=== PATIENT | male | born 1955 | race Caucasian/White ===

== ENCOUNTER 2018-03-21 14:39 | Inpatient (IN) | payer MEDICAID ==
[~2018-03-21] VITALS: Ht 170.2 cm; Wt 78.7 kg
[2018-03-21] MEDS: NOREPINEPHRINE 8 MG/250ML KIT 250 ML IV SCH (01:00)
[2018-03-21] MEDS ORDERED: SODIUM CHLORIDE 0.9% 1,000 ML IVB ONE (15:14)
[2018-03-21 15:30] LABS: Basophils # (auto) 0.1 uL; Basophils % (auto) 0.4 % (0.0-2.0); Eosinophils # (auto) 0 uL; Eosinophils % (auto) 0.2 % (0.0-7.0); Mean Corpuscular Hgb Conc. 33.8 g/dL (32.0-36.0); Monocytes % (auto) 6.2 % (0.0-12.0); Neutrophils # (auto) 13.7 uL; Nucleated Red Blood Cells % 0.1 %
[2018-03-21 15:32] LABS: Hematocrit 52.3 % (41.0-53.0); Hemoglobin 17.7 g/dL (13.5-17.5); Lymphocytes # (auto) 1.3 uL; Lymphocytes % (auto) 7.9 % (10.0-50.0); Mean Corpuscular Volume 88.6 fL (80.0-100.0); Neutrophils % (auto) 85.3 % (37.0-80.0); Platelet Count (auto) 187 10^3/uL (140-450); Red Blood Cells 5.91 10^6/uL (4.5-5.90); Red Cell Distribution Width 14.3 % (11.8-14.3); White Blood Cell 16.1 10^3/uL (4.4-10.8)
[2018-03-21 15:57] LABS: INR 0.99 (0.9-1.15); Partial Thromboplastin Time 26.6 sec (23.78-33.04); Prothrombin Time 10.6 sec (9.27-12.13)
[2018-03-21 16:09] LABS: Alanine Aminotransferase 20 U/L (16-61); Albumin 4.1 g/dL (3.4-5.0); Anion Gap 6 (5-15); Aspartate Aminotransferase 15 U/L (15-37); BUN/Creatinine Ratio 23.1; Blood Urea Nitrogen 31 mg/dL (7-18); Carbon Dioxide 27 mmol/L (21-32); Chloride 106 mmol/L (98-107); GFR African American 69 mL/min; GFR Non-African American 57 mL/min; Glucose 155 mg/dL (74-106); Lipase 83 U/L (73-393); Magnesium 2.3 mg/dL (1.6-2.6); Potassium 4.1 mmol/L (3.5-5.1); Sodium 139 mmol/L (136-145)
[2018-03-21 16:14] LABS: Alkaline Phosphatase 98 U/L (45-117); Bilirubin, Total 0.5 mg/dL (0.2-1.0); Total Protein 8.2 g/dL (6.4-8.2)
[2018-03-21] MEDS ORDERED: cefTRIAXone 1GM/50ML D5W 50 ML IV ONE (16:45)
[2018-03-21] MEDS ORDERED: ALBUTEROL SULF 2.5 MG/0.5ML(0.5%) NEB SOLN NEB ONE (18:30)
[2018-03-21] MEDS ORDERED: IPRATROPIUM BROM 0.5 MG/2.5ML INH SOL NEB ONE (18:30)
[2018-03-21 20:56] VITALS: BP 121/74
[2018-03-21] MEDS ORDERED: HYDROcodone-ACET 5/325MG TAB PO PRN (21:00)
[2018-03-21] MEDS ORDERED: ONDANSETRON HCL 4 MG/2 ML VIAL IV PRN (21:00)
[2018-03-21] MEDS ORDERED: DOXYCYCLINE 100MG/250ML 250 ML IV SCH (21:00)
[2018-03-21] MEDS ORDERED: ACETAMINOPHEN 325 MG TAB PO PRN (21:00)
[2018-03-21] MEDS ORDERED: MORPHINE SULF INJ 2 MG/ML SYRINGE 1ML IV PRN (21:15)
[2018-03-21] MEDS ORDERED: LORazepam 2MG/ML-1ML VIAL IV PRN (21:15)
[2018-03-21] MEDS ORDERED: FAMOTIDINE 20 MG TAB PO SCH (22:00)
[2018-03-21] MEDS ORDERED: DEXTROSE (50%) 50ML SYRG IV PRN (22:15)
[2018-03-21] MEDS ORDERED: ADENOSINE 6 MG/2 ML INJ IV ONE (23:20)
[2018-03-21] MEDS: MIDAZOLAM DRIP 50 mg/50mL 50 ML IV SCH (23:33)
[2018-03-21] MEDS ORDERED: VANCOMYCIN PER PHARMACY 0 MG IV SCH (23:45)
[2018-03-21] MEDS ORDERED: MIDAZOLAM DRIP 50 mg/50mL 50 ML IV ONE (23:48)
[2018-03-21] MEDS ORDERED: AMIODARONE HCL 900 MG in DEXTROSE 500 ML IV SCH (23:55)
[2018-03-22] VITALS (102 sets, daily range): BP systolic 79–170; BP diastolic 32–114
[2018-03-22] MEDS ORDERED: AMIODARONE HCL 900 MG IV ONE (00:01)
[2018-03-22] MEDS ORDERED: NOREPINEPHRINE 8 MG/250ML KIT 250 ML IV ONE (00:05)
[2018-03-22] MEDS: AMIODARONE HCL 900 MG in DEXTROSE 500 ML IV SCH ×2 (00:17→20:51)
[2018-03-22] MEDS ORDERED: VANCOMYCIN 1GM/250ML 250 ML IV ONE (00:30)
[2018-03-22] MEDS ORDERED: VANCOMYCIN 1GM/250ML 250 ML IV SCH ×2 (01:00→21:00)
[2018-03-22] MEDS: PROPOFOL 100 ML IV SCH ×2 (01:13→23:33)
[2018-03-22] MEDS: ACCU-CHEK COMFORT CURVE STRIP VI SCH ×5 (01:13→23:59)
[2018-03-22] MEDS: InsuLIN REG 1unit/0.01ml Soln (100units/ml) SC SCH ×4 (01:17→17:47)
[2018-03-22] MEDS ORDERED: METO-158 PO (02:06)
[2018-03-22] MEDS ORDERED: OMEP20TA PO (02:06)
[2018-03-22] MEDS ORDERED: CLON0.1T PO (02:06)
[2018-03-22] MEDS ORDERED: LISI10TA6 PO (02:06)
[2018-03-22] MEDS: ALBUTEROL SULF 2.5 MG/0.5ML(0.5%) NEB SOLN NEB SCH ×6 (02:22→22:31)
[2018-03-22] MEDS: IPRATROPIUM BROM 0.5 MG/2.5ML INH SOL NEB SCH ×6 (02:22→22:31)
[2018-03-22 04:13] LABS: Urine Bacteria NONE SEEN /hpf (None Seen); Urine Blood 1+ /uL (Negative); Urine Hyaline Cast FEW /lpf (0 - 2); Urine Mucus FEW (None Seen); Urine Specific Gravity 1.019 (1.001-1.035); Urine WBC 10 /hpf (0 - 3)
[2018-03-22 04:18] LABS: Basophils # (auto) 0 uL; Basophils % (auto) 0.1 % (0.0-2.0); Eosinophils # (auto) 0 uL; Hematocrit 47.1 % (41.0-53.0); Hemoglobin 15.6 g/dL (13.5-17.5); Lymphocytes # (auto) 0.8 uL; Lymphocytes % (auto) 4.4 % (10.0-50.0); Mean Corpuscular Hemoglobin 29.4 pg (28.0-32.0); Mean Corpuscular Hgb Conc. 33.1 g/dL (32.0-36.0); Mean Corpuscular Volume 88.6 fL (80.0-100.0); Monocytes # (auto) 1.3 uL; Monocytes % (auto) 7.3 % (0.0-12.0); Neutrophils # (auto) 15.4 uL; Neutrophils % (auto) 88.2 % (37.0-80.0); Nucleated Red Blood Cells % 0.1 %; Platelet Count (auto) 216 10^3/uL (140-450); Red Blood Cells 5.31 10^6/uL (4.5-5.90); Red Cell Distribution Width 14.3 % (11.8-14.3); White Blood Cell 17.4 10^3/uL (4.4-10.8)
[2018-03-22 04:23] LABS: Alcohol, Urine < 3.0 mg/dL (0-5); Amphetamine Screen, Urine NEGATIVE (NEGATIVE); Barbiturate Scree,Urine NEGATIVE (NEGATIVE); Benzodiazephine Screen, Urine POSITIVE (NEGATIVE); Cannabinoid Screen, Urine NEGATIVE (NEGATIVE); Cocaine Screen, Urine NEGATIVE (NEGATIVE); Opiate Scree,Urine NEGATIVE (NEGATIVE); Phencyclidine Screen, Urine NEGATIVE (NEGATIVE)
[2018-03-22 04:24] LABS: Calcium 7.8 mg/dL (8.5-10.1)
[2018-03-22 04:28] LABS: Potassium 5.7 mmol/L (3.5-5.1)
[2018-03-22] MEDS ORDERED: SODIUM BICARBONATE 8.4 % INJ 50ML VIAL IV ONE (05:15)
[2018-03-22] MEDS ORDERED: CALCIUM GLUC 4.65meq/50ml D5AE 50 ML IV ONE (05:15)
[2018-03-22] MEDS ORDERED: InsuLIN REG 1unit/0.01ml Soln (100units/ml) IV ONE (05:15)
[2018-03-22] MEDS ORDERED: DEXTROSE (50%) 50ML SYRG IV ONE (05:15)
[2018-03-22] MEDS ORDERED: hydrALAZINE HCL 20 MG/ML VL ONE (05:42)
[2018-03-22] MEDS: PIPERACILLIN-TAZOB 3.375GM 100 ML IV SCH ×3 (07:00→17:47)
[2018-03-22] MEDS: MIDAZOLAM DRIP 50 mg/50mL 50 ML IV SCH ×2 (07:49→20:43)
[2018-03-22] MEDS: PANTOPRAZOLE 40 MG/10 ML VIAL IV SCH (09:54)
[2018-03-22] MEDS ORDERED: ENOXAPARIN SOD 40 MG/0.4 ML SYRINGE SC SCH (10:00)
[2018-03-22] MEDS ORDERED: METOPROLOL TARTRATE 25 MG TAB PO ONE (12:30)
[2018-03-22] MEDS ORDERED: ENOXAPARIN SOD 100 MG/1 ML SYRINGE SC SCH (22:00)
[2018-03-22] MEDS: METOPROLOL TARTRATE 25 MG TAB PO SCH (22:00)
[2018-03-22] MEDS: ENOXAPARIN SOD 80 MG/0.8ML SYRINGE SC SCH (22:19)
[2018-03-23] VITALS (77 sets, daily range): BP systolic 90–174; BP diastolic 25–88
[2018-03-23] MEDS: PIPERACILLIN-TAZOB 3.375GM 100 ML IV SCH ×2 (00:05→06:26)
[2018-03-23] MEDS: InsuLIN REG 1unit/0.01ml Soln (100units/ml) SC SCH ×5 (00:05→23:41)
[2018-03-23] MEDS: NOREPINEPHRINE 8 MG/250ML KIT 250 ML IV SCH ×2 (01:00→04:04)
[2018-03-23] MEDS: ALBUTEROL SULF 2.5 MG/0.5ML(0.5%) NEB SOLN NEB SCH ×6 (02:30→22:21)
[2018-03-23] MEDS: IPRATROPIUM BROM 0.5 MG/2.5ML INH SOL NEB SCH ×6 (02:30→22:21)
[2018-03-23] MEDS: MIDAZOLAM DRIP 50 mg/50mL 50 ML IV SCH ×2 (04:03→21:19)
[2018-03-23 04:13] LABS: Basophils # (auto) 0 uL; Basophils % (auto) 0.2 % (0.0-2.0); Eosinophils # (auto) 0 uL; Eosinophils % (auto) 0.1 % (0.0-7.0); Hematocrit 41.1 % (41.0-53.0); Hemoglobin 14.1 g/dL (13.5-17.5); Lymphocytes # (auto) 0.8 uL; Lymphocytes % (auto) 6.8 % (10.0-50.0); Mean Corpuscular Hemoglobin 30.1 pg (28.0-32.0); Mean Corpuscular Hgb Conc. 34.3 g/dL (32.0-36.0); Mean Corpuscular Volume 87.7 fL (80.0-100.0); Monocytes # (auto) 1.2 uL; Monocytes % (auto) 10.7 % (0.0-12.0); Neutrophils # (auto) 9.4 uL; Neutrophils % (auto) 82.2 % (37.0-80.0); Platelet Count (auto) 131 10^3/uL (140-450); Red Blood Cells 4.68 10^6/uL (4.5-5.90); Red Cell Distribution Width 13.8 % (11.8-14.3); White Blood Cell 11.4 10^3/uL (4.4-10.8)
[2018-03-23 04:24] LABS: Potassium 3.9 mmol/L (3.5-5.1)
[2018-03-23 04:35] LABS: Albumin 2.9 g/dL (3.4-5.0); BUN/Creatinine Ratio 17.6; Calcium 8.4 mg/dL (8.5-10.1); Total Protein 6.2 g/dL (6.4-8.2)
[2018-03-23] MEDS: ACCU-CHEK COMFORT CURVE STRIP VI SCH ×4 (06:19→23:41)
[2018-03-23] MEDS: PANTOPRAZOLE 40 MG/10 ML VIAL IV SCH (10:26)
[2018-03-23] MEDS: ENOXAPARIN SOD 80 MG/0.8ML SYRINGE SC SCH ×2 (10:26→21:26)
[2018-03-23] MEDS: AZITHROMYCIN 500MG/ 250ML 250 ML IV SCH (10:26)
[2018-03-23] MEDS: METOPROLOL TARTRATE 25 MG TAB PO SCH ×2 (10:27→21:25)
[2018-03-23] MEDS: ACETYLCYSTEINE ORAL for CIN 20%(200MG/ML) 4ML PO SCH ×2 (10:34→21:26)
[2018-03-23] MEDS ORDERED: SODIUM CHLORIDE 0.9% 1,000 ML IV SCH ×3 (11:45→18:15)
[2018-03-23] MEDS ORDERED: fentaNYL Drip 2500mCg/250mlNS 250 ML IV SCH (14:41)
[2018-03-23] MEDS ORDERED: SODIUM CHL 0.9% 0 ML ONE (15:27)
[2018-03-23] MEDS ORDERED: ANGIOMAX 250 MG VIAL IV ONE (15:27)
[2018-03-23] MEDS ORDERED: IODIXANOL 320MG/ML 100ML BTL IV ONE (15:27)
[2018-03-23] MEDS ORDERED: LIDOCAINE 2%HCL (LOCAL ANESTH.) INJ 20ML MDV ONE (15:28)
[2018-03-23] MEDS ORDERED: EPINEPHrine HCL 1 MG/10 ML SYRG ONE (15:41)
[2018-03-23] MEDS ORDERED: ATROPINE SULF 1 MG/10ml SYR ONE (15:41)
[2018-03-23] MEDS ORDERED: fentaNYL CITRATE 100 MCG/2 ML VL ONE (15:55)
[2018-03-23] MEDS ORDERED: MIDAZOLAM HCL 1MG/1ML-2 ML VIAL ONE (15:56)
[2018-03-23] MEDS ORDERED: SODIUM BICARBONATE 50ML VIAL 50 ML in D5W/SOD CHL 0.45% 1,000 ML IV SCH (17:15)
[2018-03-23] MEDS: SODIUM BICARBONATE 50ML VIAL 50 ML in D5W/SOD CHL 0.45% 1,000 ML IV SCH (20:00)
[2018-03-23] MEDS: PROPOFOL 100 ML IV SCH (23:33)
[2018-03-24] VITALS (78 sets, daily range): BP systolic 65–177; BP diastolic 21–100
[2018-03-24] MEDS: ALBUTEROL SULF 2.5 MG/0.5ML(0.5%) NEB SOLN NEB SCH ×6 (02:20→22:00)
[2018-03-24] MEDS: IPRATROPIUM BROM 0.5 MG/2.5ML INH SOL NEB SCH ×6 (02:20→22:00)
[2018-03-24 03:50] LABS: Basophils # (auto) 0 uL; Basophils % (auto) 0.2 % (0.0-2.0); Eosinophils # (auto) 0.1 uL; Eosinophils % (auto) 0.6 % (0.0-7.0); Hematocrit 39.8 % (41.0-53.0); Hemoglobin 13.6 g/dL (13.5-17.5); Lymphocytes # (auto) 1.2 uL; Lymphocytes % (auto) 11.7 % (10.0-50.0); Mean Corpuscular Hemoglobin 30.2 pg (28.0-32.0); Mean Corpuscular Hgb Conc. 34.2 g/dL (32.0-36.0); Mean Corpuscular Volume 88.2 fL (80.0-100.0); Monocytes # (auto) 1.2 uL; Monocytes % (auto) 12.1 % (0.0-12.0); Neutrophils # (auto) 7.7 uL; Neutrophils % (auto) 75.4 % (37.0-80.0); Platelet Count (auto) 121 10^3/uL (140-450); Red Blood Cells 4.51 10^6/uL (4.5-5.90); Red Cell Distribution Width 14.1 % (11.8-14.3); White Blood Cell 10.2 10^3/uL (4.4-10.8)
[2018-03-24 04:28] LABS: Albumin 2.6 g/dL (3.4-5.0); Calcium 8.4 mg/dL (8.5-10.1); Potassium 3.4 mmol/L (3.5-5.1)
[2018-03-24 04:31] LABS: Bilirubin, Total 0.7 mg/dL (0.2-1.0); Total Protein 6.2 g/dL (6.4-8.2)
[2018-03-24] MEDS: ACCU-CHEK COMFORT CURVE STRIP VI SCH ×4 (05:59→23:56)
[2018-03-24] MEDS: AMIODARONE HCL 900 MG in DEXTROSE 500 ML IV SCH (05:59)
[2018-03-24] MEDS: SODIUM BICARBONATE 50ML VIAL 50 ML in D5W/SOD CHL 0.45% 1,000 ML IV SCH (05:59)
[2018-03-24] MEDS: InsuLIN REG 1unit/0.01ml Soln (100units/ml) SC SCH ×3 (06:00→18:00)
[2018-03-24] MEDS: cefTRIAXone 1GM/50ML D5W 50 ML IV SCH (09:11)
[2018-03-24] MEDS ORDERED: FUROSEMIDE 20 MG/2 ML VIAL IV ONE ×2 (10:30→12:15)
[2018-03-24] MEDS: PANTOPRAZOLE 40 MG/10 ML VIAL IV SCH (10:31)
[2018-03-24] MEDS: ENOXAPARIN SOD 80 MG/0.8ML SYRINGE SC SCH (10:32)
[2018-03-24] MEDS: METOPROLOL TARTRATE 25 MG TAB PO SCH ×2 (10:32→23:32)
[2018-03-24] MEDS: ACETYLCYSTEINE ORAL for CIN 20%(200MG/ML) 4ML PO SCH ×2 (10:32→23:33)
[2018-03-24] MEDS: AZITHROMYCIN 500MG/ 250ML 250 ML IV SCH (10:32)
[2018-03-24] MEDS ORDERED: POTASSIUM EFFERVESENT TAB 25 MEQ GT ONE (12:15)
[2018-03-24] MEDS ORDERED: ALPRAZolam 0.5 MG TAB PO PRN (12:15)
[2018-03-24] MEDS ORDERED: BUDESONIDE (INHALATION) 0.5 MG/2 ML NEB NEB ONE (13:30)
[2018-03-24] MEDS: ACETYLCYSTEINE 10 %(100MG/ML) SOL 4ML NEB SCH ×3 (13:56→22:00)
[2018-03-24] MEDS: MORPHINE SULFATE 4 MG/ML SYR/VIAL IV PRN ×2 (15:59→20:48)
[2018-03-24] MEDS: BUDESONIDE (INHALATION) 0.5 MG/2 ML NEB NEB SCH (18:34)
[2018-03-24] MEDS ORDERED: NALOXONE HCL 0.4 MG/ML VIAL ONE (21:25)
[2018-03-24] MEDS ORDERED: SUCCINYLCHOLINE CHLORIDE 20 MG/ML 10ML VIAL IV ONE ×2 (21:28→23:15)
[2018-03-24] MEDS ORDERED: ETOMIDATE (2MG/ML) 20ML VIAL IV ONE ×2 (21:28→23:15)
[2018-03-24] MEDS ORDERED: PROPOFOL 100 ML IV ONE (21:59)
[2018-03-24] MEDS: PROPOFOL 100 ML IV SCH (22:04)
[2018-03-24] MEDS ORDERED: NALOXONE HCL 0.4 MG/ML VIAL IV ONE (23:15)
[2018-03-24] MEDS ORDERED: PROPOFOL 10 MG/ML 20 ML IV ONE (23:30)
[2018-03-25] VITALS (93 sets, daily range): BP systolic 79–152; BP diastolic 43–74
[2018-03-25] MEDS: InsuLIN REG 1unit/0.01ml Soln (100units/ml) SC SCH ×4 (00:01→17:41)
[2018-03-25] MEDS: ACETYLCYSTEINE 10 %(100MG/ML) SOL 4ML NEB SCH ×6 (02:21→22:19)
[2018-03-25] MEDS: ALBUTEROL SULF 2.5 MG/0.5ML(0.5%) NEB SOLN NEB SCH ×6 (02:21→22:18)
[2018-03-25] MEDS: IPRATROPIUM BROM 0.5 MG/2.5ML INH SOL NEB SCH ×6 (02:21→22:18)
[2018-03-25] MEDS: NOREPINEPHRINE 8 MG/250ML KIT 250 ML IV SCH (02:26)
[2018-03-25] MEDS: PROPOFOL 100 ML IV SCH ×3 (02:28→15:58)
[2018-03-25 04:11] LABS: Basophils # (auto) 0 uL; Basophils % (auto) 0.3 % (0.0-2.0); Eosinophils # (auto) 0 uL; Eosinophils % (auto) 0.2 % (0.0-7.0); Hematocrit 39.4 % (41.0-53.0); Hemoglobin 13.3 g/dL (13.5-17.5); Lymphocytes # (auto) 0.8 uL; Lymphocytes % (auto) 6.9 % (10.0-50.0); Mean Corpuscular Hemoglobin 29.7 pg (28.0-32.0); Mean Corpuscular Hgb Conc. 33.8 g/dL (32.0-36.0); Mean Corpuscular Volume 87.8 fL (80.0-100.0); Monocytes # (auto) 1.5 uL; Monocytes % (auto) 12.3 % (0.0-12.0); Neutrophils # (auto) 9.8 uL; Neutrophils % (auto) 80.3 % (37.0-80.0); Platelet Count (auto) 159 10^3/uL (140-450); Red Blood Cells 4.49 10^6/uL (4.5-5.90); White Blood Cell 12.2 10^3/uL (4.4-10.8)
[2018-03-25 04:30] LABS: BUN/Creatinine Ratio 16.6; Calcium 8.2 mg/dL (8.5-10.1); Potassium 4.1 mmol/L (3.5-5.1)
[2018-03-25] MEDS: BUDESONIDE (INHALATION) 0.5 MG/2 ML NEB NEB SCH ×2 (07:00→22:18)
[2018-03-25] MEDS ORDERED: HYDROcodone-ACET 5/325MG TAB PO PRN (08:30)
[2018-03-25] MEDS: SODIUM CHLORIDE 0.9% 1,000 ML IV SCH ×2 (09:15→21:50)
[2018-03-25] MEDS: ACCU-CHEK COMFORT CURVE STRIP VI SCH ×3 (09:30→17:40)
[2018-03-25] MEDS: AZITHROMYCIN 500MG/ 250ML 250 ML IV SCH (09:40)
[2018-03-25] MEDS: PANTOPRAZOLE 40 MG/10 ML VIAL IV SCH (09:40)
[2018-03-25] MEDS: cefTRIAXone 1GM/50ML D5W 50 ML IV SCH (09:40)
[2018-03-25] MEDS: ENOXAPARIN SOD 40 MG/0.4 ML SYRINGE SC SCH (09:40)
[2018-03-25] MEDS: METOPROLOL TARTRATE 25 MG TAB PO SCH ×2 (09:42→22:11)
[2018-03-25] MEDS: AMIODARONE HCL 900 MG in DEXTROSE 500 ML IV SCH (13:15)
[2018-03-26] VITALS (105 sets, daily range): BP systolic 91–170; BP diastolic 44–82
[2018-03-26] MEDS: NOREPINEPHRINE 8 MG/250ML KIT 250 ML IV SCH (02:09)
[2018-03-26] MEDS: IPRATROPIUM BROM 0.5 MG/2.5ML INH SOL NEB SCH ×6 (02:32→22:26)
[2018-03-26] MEDS: ALBUTEROL SULF 2.5 MG/0.5ML(0.5%) NEB SOLN NEB SCH ×6 (02:32→22:26)
[2018-03-26] MEDS: ACETYLCYSTEINE 10 %(100MG/ML) SOL 4ML NEB SCH ×6 (02:33→22:27)
[2018-03-26 03:05] LABS: Basophils # (auto) 0 uL; Basophils % (auto) 0.4 % (0.0-2.0); Eosinophils # (auto) 0.1 uL; Eosinophils % (auto) 1.2 % (0.0-7.0); Hematocrit 37.3 % (41.0-53.0); Hemoglobin 12.7 g/dL (13.5-17.5); Lymphocytes # (auto) 0.8 uL; Lymphocytes % (auto) 8.3 % (10.0-50.0); Mean Corpuscular Hemoglobin 29.8 pg (28.0-32.0); Mean Corpuscular Hgb Conc. 33.9 g/dL (32.0-36.0); Monocytes # (auto) 1.4 uL; Monocytes % (auto) 13.9 % (0.0-12.0); Neutrophils # (auto) 7.7 uL; Neutrophils % (auto) 76.2 % (37.0-80.0); Platelet Count (auto) 166 10^3/uL (140-450); Red Blood Cells 4.24 10^6/uL (4.5-5.90); Red Cell Distribution Width 13.9 % (11.8-14.3); White Blood Cell 10.1 10^3/uL (4.4-10.8)
[2018-03-26 03:19] LABS: BUN/Creatinine Ratio 25.2; Calcium 8.4 mg/dL (8.5-10.1)
[2018-03-26] MEDS: InsuLIN REG 1unit/0.01ml Soln (100units/ml) SC SCH ×5 (06:00→23:08)
[2018-03-26] MEDS: ACCU-CHEK COMFORT CURVE STRIP VI SCH ×5 (06:05→23:08)
[2018-03-26] MEDS: METOPROLOL TARTRATE 25 MG TAB PO SCH ×2 (09:30→21:57)
[2018-03-26] MEDS: ENOXAPARIN SOD 40 MG/0.4 ML SYRINGE SC SCH (09:30)
[2018-03-26] MEDS: PANTOPRAZOLE 40 MG/10 ML VIAL IV SCH (09:30)
[2018-03-26] MEDS: PROPOFOL 100 ML IV SCH ×2 (09:30→23:57)
[2018-03-26] MEDS: cefTRIAXone 1GM/50ML D5W 50 ML IV SCH (09:34)
[2018-03-26] MEDS: SODIUM CHLORIDE 0.9% 1,000 ML IV SCH (10:14)
[2018-03-26] MEDS: AZITHROMYCIN 500MG/ 250ML 250 ML IV SCH (10:16)
[2018-03-26] MEDS: BUDESONIDE (INHALATION) 0.5 MG/2 ML NEB NEB SCH ×2 (10:32→18:45)
[2018-03-26] MEDS ORDERED: SODIUM CHLORIDE LOCK 30 ML ONE (11:12)
[2018-03-26] MEDS ORDERED: LIDOCAINE 2% (LOCAL ANESTH.) PF 5ml SDV ONE (11:12)
[2018-03-26] MEDS ORDERED: EPINEPHrine HCL 1 MG/1 ML AMP ONE (11:13)
[2018-03-26] MEDS ORDERED: LIDOCAINE HCL 2% TOP JELLY 5ML TOP ONE (11:13)
[2018-03-26] MEDS ORDERED: MIDAZOLAM HCL 5 MG/ML-1ML VIAL ONE (11:13)
[2018-03-26] MEDS ORDERED: MIDAZOLAM HCL 5 MG/ML-1ML VIAL IV ONE (14:15)
[2018-03-26] MEDS ORDERED: MORPHINE SULFATE 4 MG/ML SYR/VIAL IV ONE (14:30)
[2018-03-26] MEDS: AMIODARONE HCL 900 MG in DEXTROSE 500 ML IV SCH (18:24)
[2018-03-27] VITALS (106 sets, daily range): BP systolic 112–167; BP diastolic 30–85
[2018-03-27] MEDS: SODIUM CHLORIDE 0.9% 1,000 ML IV SCH ×3 (00:30→22:37)
[2018-03-27] MEDS: NOREPINEPHRINE 8 MG/250ML KIT 250 ML IV SCH (02:09)
[2018-03-27] MEDS: ACETYLCYSTEINE 10 %(100MG/ML) SOL 4ML NEB SCH ×6 (02:32→22:17)
[2018-03-27] MEDS: ALBUTEROL SULF 2.5 MG/0.5ML(0.5%) NEB SOLN NEB SCH ×6 (02:32→22:17)
[2018-03-27] MEDS: IPRATROPIUM BROM 0.5 MG/2.5ML INH SOL NEB SCH ×6 (02:32→22:17)
[2018-03-27 04:20] LABS: Basophils # (auto) 0 uL; Basophils % (auto) 0.4 % (0.0-2.0); Eosinophils # (auto) 0.2 uL; Eosinophils % (auto) 2.1 % (0.0-7.0); Hematocrit 36.8 % (41.0-53.0); Hemoglobin 12.5 g/dL (13.5-17.5); Lymphocytes % (auto) 10.3 % (10.0-50.0); Mean Corpuscular Hemoglobin 29.9 pg (28.0-32.0); Mean Corpuscular Hgb Conc. 33.9 g/dL (32.0-36.0); Mean Corpuscular Volume 88.2 fL (80.0-100.0); Monocytes # (auto) 1.3 uL; Monocytes % (auto) 13.4 % (0.0-12.0); Neutrophils # (auto) 7.3 uL; Neutrophils % (auto) 73.8 % (37.0-80.0); Platelet Count (auto) 180 10^3/uL (140-450); Red Blood Cells 4.18 10^6/uL (4.5-5.90); Red Cell Distribution Width 13.8 % (11.8-14.3); White Blood Cell 9.9 10^3/uL (4.4-10.8)
[2018-03-27 04:44] LABS: BUN/Creatinine Ratio 31.2; Calcium 8.5 mg/dL (8.5-10.1)
[2018-03-27] MEDS: ACCU-CHEK COMFORT CURVE STRIP VI SCH ×3 (05:01→17:34)
[2018-03-27] MEDS: InsuLIN REG 1unit/0.01ml Soln (100units/ml) SC SCH ×3 (05:01→17:34)
[2018-03-27] MEDS: PROPOFOL 100 ML IV SCH ×5 (06:33→22:37)
[2018-03-27] MEDS: cefTRIAXone 1GM/50ML D5W 50 ML IV SCH (10:09)
[2018-03-27] MEDS: PANTOPRAZOLE 40 MG/10 ML VIAL IV SCH (10:09)
[2018-03-27] MEDS: AZITHROMYCIN 500MG/ 250ML 250 ML IV SCH (10:09)
[2018-03-27] MEDS: ENOXAPARIN SOD 40 MG/0.4 ML SYRINGE SC SCH (10:10)
[2018-03-27] MEDS: METOPROLOL TARTRATE 25 MG TAB PO SCH ×2 (10:10→21:41)
[2018-03-27] MEDS: BUDESONIDE (INHALATION) 0.5 MG/2 ML NEB NEB SCH ×2 (10:15→18:24)
[2018-03-27] MEDS: AMIODARONE HCL 900 MG in DEXTROSE 500 ML IV SCH (12:43)
[2018-03-27] MEDS: Glucerna 1.2 Cal 1Liter BOTTLE GT SCH (12:45)
[2018-03-27] MEDS ORDERED: ACETYLCYSTEINE 20%(200MG/ML) SOL 4ML ONE (18:18)
[2018-03-28] VITALS (109 sets, daily range): BP systolic 117–158; BP diastolic 46–87
[2018-03-28] MEDS: InsuLIN REG 1unit/0.01ml Soln (100units/ml) SC SCH ×4 (00:30→17:30)
[2018-03-28] MEDS: ACCU-CHEK COMFORT CURVE STRIP VI SCH ×4 (00:30→17:30)
[2018-03-28] MEDS: PROPOFOL 100 ML IV SCH ×5 (01:58→22:13)
[2018-03-28] MEDS: NOREPINEPHRINE 8 MG/250ML KIT 250 ML IV SCH (02:09)
[2018-03-28] MEDS: ALBUTEROL SULF 2.5 MG/0.5ML(0.5%) NEB SOLN NEB SCH ×6 (02:12→21:57)
[2018-03-28] MEDS: IPRATROPIUM BROM 0.5 MG/2.5ML INH SOL NEB SCH ×6 (02:12→21:57)
[2018-03-28] MEDS: ACETYLCYSTEINE 10 %(100MG/ML) SOL 4ML NEB SCH ×6 (02:12→21:57)
[2018-03-28 04:32] LABS: Basophils # (auto) 0 uL; Basophils % (auto) 0.2 % (0.0-2.0); Eosinophils # (auto) 0.2 uL; Eosinophils % (auto) 1.9 % (0.0-7.0); Hematocrit 36.1 % (41.0-53.0); Hemoglobin 12.2 g/dL (13.5-17.5); Lymphocytes # (auto) 1.2 uL; Lymphocytes % (auto) 13.5 % (10.0-50.0); Mean Corpuscular Hgb Conc. 33.7 g/dL (32.0-36.0); Mean Corpuscular Volume 88.9 fL (80.0-100.0); Monocytes # (auto) 1.3 uL; Monocytes % (auto) 14.4 % (0.0-12.0); Neutrophils # (auto) 6.3 uL; Nucleated Red Blood Cells % 0.1 %; Platelet Count (auto) 181 10^3/uL (140-450); Red Blood Cells 4.06 10^6/uL (4.5-5.90); Red Cell Distribution Width 14.1 % (11.8-14.3)
[2018-03-28 04:48] LABS: BUN/Creatinine Ratio 32.1; Potassium 4.1 mmol/L (3.5-5.1)
[2018-03-28] MEDS: BUDESONIDE (INHALATION) 0.5 MG/2 ML NEB NEB SCH ×2 (05:37→18:12)
[2018-03-28] MEDS: cefTRIAXone 1GM/50ML D5W 50 ML IV SCH (08:46)
[2018-03-28] MEDS: ENOXAPARIN SOD 40 MG/0.4 ML SYRINGE SC SCH (09:53)
[2018-03-28] MEDS: PANTOPRAZOLE 40 MG/10 ML VIAL IV SCH (09:53)
[2018-03-28] MEDS: AZITHROMYCIN 500MG/ 250ML 250 ML IV SCH (09:53)
[2018-03-28] MEDS: METOPROLOL TARTRATE 25 MG TAB PO SCH ×2 (09:54→22:12)
[2018-03-28] MEDS: Glucerna 1.2 Cal 1Liter BOTTLE GT SCH (13:00)
[2018-03-28] MEDS: SODIUM CHLORIDE 0.9% 1,000 ML IV SCH (14:10)
[2018-03-28] MEDS: AMIODARONE HCL 900 MG in DEXTROSE 500 ML IV SCH (14:21)
[2018-03-29] VITALS (85 sets, daily range): BP systolic 121–193; BP diastolic 51–110
[2018-03-29] MEDS: ACCU-CHEK COMFORT CURVE STRIP VI SCH ×3 (00:19→11:34)
[2018-03-29] MEDS: PROPOFOL 100 ML IV SCH ×2 (01:23→05:31)
[2018-03-29] MEDS: ACETYLCYSTEINE 10 %(100MG/ML) SOL 4ML NEB SCH ×6 (02:07→22:42)
[2018-03-29] MEDS: IPRATROPIUM BROM 0.5 MG/2.5ML INH SOL NEB SCH ×6 (02:07→22:41)
[2018-03-29] MEDS: ALBUTEROL SULF 2.5 MG/0.5ML(0.5%) NEB SOLN NEB SCH ×6 (02:07→22:42)
[2018-03-29] MEDS: NOREPINEPHRINE 8 MG/250ML KIT 250 ML IV SCH (02:09)
[2018-03-29 03:53] LABS: Basophils # (auto) 0 uL; Basophils % (auto) 0.4 % (0.0-2.0); Eosinophils # (auto) 0.1 uL; Eosinophils % (auto) 1.6 % (0.0-7.0); Hematocrit 35.8 % (41.0-53.0); Hemoglobin 12.2 g/dL (13.5-17.5); Lymphocytes # (auto) 1.2 uL; Lymphocytes % (auto) 14.3 % (10.0-50.0); Mean Corpuscular Hgb Conc. 34.1 g/dL (32.0-36.0); Monocytes # (auto) 1.3 uL; Monocytes % (auto) 15.8 % (0.0-12.0); Neutrophils # (auto) 5.7 uL; Neutrophils % (auto) 67.9 % (37.0-80.0); Platelet Count (auto) 206 10^3/uL (140-450); Red Blood Cells 4.07 10^6/uL (4.5-5.90); Red Cell Distribution Width 13.8 % (11.8-14.3); White Blood Cell 8.4 10^3/uL (4.4-10.8)
[2018-03-29 04:13] LABS: Calcium 8.2 mg/dL (8.5-10.1); Potassium 4.4 mmol/L (3.5-5.1)
[2018-03-29 04:16] LABS: BUN/Creatinine Ratio 29.7
[2018-03-29] MEDS: SODIUM CHLORIDE 0.9% 1,000 ML IV SCH (04:19)
[2018-03-29] MEDS: InsuLIN REG 1unit/0.01ml Soln (100units/ml) SC SCH ×3 (05:31→11:34)
[2018-03-29] MEDS ORDERED: DEXMEDETOMIDINE HCL 400 MCG in D5W 5% 96 ML IV SCH (08:38)
[2018-03-29] MEDS ORDERED: SODIUM CHLORIDE LOCK 20 ML ONE (08:39)
[2018-03-29] MEDS ORDERED: EPINEPHrine HCL 1 MG/1 ML AMP ONE (08:39)
[2018-03-29] MEDS ORDERED: LIDOCAINE 2% (LOCAL ANESTH.) PF 5ml SDV ONE (08:39)
[2018-03-29] MEDS ORDERED: MIDAZOLAM HCL 5 MG/ML-1ML VIAL ONE (08:40)
[2018-03-29] MEDS ORDERED: LIDOCAINE 2% JELLY 11ml (GLYDO) ONE (08:40)
[2018-03-29] MEDS ORDERED: SIMETHICONE 40 MG/0.6 ML ORAL DROP ONE (08:40)
[2018-03-29] MEDS: ENOXAPARIN SOD 40 MG/0.4 ML SYRINGE SC SCH (09:20)
[2018-03-29] MEDS: AZITHROMYCIN 500MG/ 250ML 250 ML IV SCH (09:20)
[2018-03-29] MEDS: cefTRIAXone 1GM/50ML D5W 50 ML IV SCH (09:20)
[2018-03-29] MEDS: PANTOPRAZOLE 40 MG/10 ML VIAL IV SCH (09:20)
[2018-03-29] MEDS: METOPROLOL TARTRATE 25 MG TAB PO SCH ×2 (09:21→22:00)
[2018-03-29] MEDS: BUDESONIDE (INHALATION) 0.5 MG/2 ML NEB NEB SCH ×2 (09:46→22:42)
[2018-03-29] MEDS ORDERED: MORPHINE SULFATE 4 MG/ML SYR/VIAL IV PRN (11:15)
[2018-03-29] MEDS ORDERED: LORazepam 2MG/ML-1ML VIAL IV PRN (11:15)
[2018-03-29] MEDS ORDERED: HYDROcodone-ACET 5/325MG TAB PO PRN (11:15)
[2018-03-29] MEDS ORDERED: ENALAPRILAT 1.25 MG/ML-1ML VIAL IV PRN (16:00)
[2018-03-29] MEDS ORDERED: ACETYLCYSTEINE 10 %(100MG/ML) SOL 10ML ONE (18:27)
[2018-03-29] MEDS: hydrALAZINE HCL 20 MG/ML VL IV PRN (19:01)
[2018-03-30] VITALS (30 sets, daily range): BP systolic 112–171; BP diastolic 62–86
[2018-03-30] MEDS: IPRATROPIUM BROM 0.5 MG/2.5ML INH SOL NEB SCH ×6 (02:00→22:13)
[2018-03-30] MEDS: ALBUTEROL SULF 2.5 MG/0.5ML(0.5%) NEB SOLN NEB SCH ×6 (02:00→22:13)
[2018-03-30] MEDS: ACETYLCYSTEINE 10 %(100MG/ML) SOL 4ML NEB SCH ×6 (02:00→22:13)
[2018-03-30] MEDS ORDERED: PANTOPRAZOLE 40 MG TAB PO SCH (10:00)
[2018-03-30] MEDS: METOPROLOL TARTRATE 25 MG TAB PO SCH ×2 (10:00→21:01)
[2018-03-30] MEDS: AZITHROMYCIN 500MG/ 250ML 250 ML IV SCH (10:20)
[2018-03-30] MEDS: cefTRIAXone 1GM/50ML D5W 50 ML IV SCH (10:20)
[2018-03-30] MEDS: ENOXAPARIN SOD 40 MG/0.4 ML SYRINGE SC SCH (10:21)
[2018-03-30] MEDS: BUDESONIDE (INHALATION) 0.5 MG/2 ML NEB NEB SCH ×2 (11:08→22:13)
[2018-03-30] MEDS: ACCU-CHEK COMFORT CURVE STRIP VI SCH ×3 (11:57→23:00)
[2018-03-30] MEDS: InsuLIN REG 1unit/0.01ml Soln (100units/ml) SC SCH ×3 (12:00→22:59)
[2018-03-30 21:04] LABS: Cholesterol 248 mg/dL (< 200)
[2018-03-30 21:07] LABS: HDL Cholesterol 15 mg/dL (40-59); LDL Cholesterol 199 mg/dL (< 100); Triglycerides 234 mg/dL (< 150)
[2018-03-30] MEDS: hydrALAZINE HCL 20 MG/ML VL IV PRN (21:10)
[2018-03-30] MEDS ORDERED: ATORVASTATIN 20 MG TAB PO SCH (22:00)
[2018-03-31] VITALS (13 sets, daily range): BP systolic 127–159; BP diastolic 66–105
[2018-03-31] MEDS: IPRATROPIUM BROM 0.5 MG/2.5ML INH SOL NEB SCH ×5 (02:14→19:16)
[2018-03-31] MEDS: ALBUTEROL SULF 2.5 MG/0.5ML(0.5%) NEB SOLN NEB SCH ×5 (02:14→19:18)
[2018-03-31] MEDS: ACETYLCYSTEINE 10 %(100MG/ML) SOL 4ML NEB SCH ×5 (02:14→19:18)
[2018-03-31 06:17] LABS: Basophils # (auto) 0.1 uL; Basophils % (auto) 0.4 % (0.0-2.0); Eosinophils # (auto) 0.1 uL; Eosinophils % (auto) 0.7 % (0.0-7.0); Hematocrit 39.4 % (41.0-53.0); Hemoglobin 13.3 g/dL (13.5-17.5); Lymphocytes % (auto) 6.7 % (10.0-50.0); Mean Corpuscular Hemoglobin 29.9 pg (28.0-32.0); Mean Corpuscular Hgb Conc. 33.8 g/dL (32.0-36.0); Mean Corpuscular Volume 88.4 fL (80.0-100.0); Monocytes # (auto) 1.3 uL; Monocytes % (auto) 8.8 % (0.0-12.0); Neutrophils # (auto) 12.5 uL; Neutrophils % (auto) 83.4 % (37.0-80.0); Nucleated Red Blood Cells % 0.1 %; Platelet Count (auto) 253 10^3/uL (140-450); Red Blood Cells 4.46 10^6/uL (4.5-5.90); Red Cell Distribution Width 13.9 % (11.8-14.3)
[2018-03-31 06:36] LABS: Cholesterol 242 mg/dL (< 200); HDL Cholesterol 22 mg/dL (40-59); LDL Cholesterol 187 mg/dL (< 100); Triglycerides 215 mg/dL (< 150)
[2018-03-31 06:43] LABS: Albumin 2.5 g/dL (3.4-5.0); Calcium 8.9 mg/dL (8.5-10.1); Potassium 3.9 mmol/L (3.5-5.1)
[2018-03-31 06:46] LABS: BUN/Creatinine Ratio 38.5; Bilirubin, Total 0.5 mg/dL (0.2-1.0)
[2018-03-31] MEDS: cefTRIAXone 1GM/50ML D5W 50 ML IV SCH (08:37)
[2018-03-31] MEDS: BUDESONIDE (INHALATION) 0.5 MG/2 ML NEB NEB SCH (09:56)
[2018-03-31] MEDS ORDERED: ENOXAPARIN SOD 40 MG/0.4 ML SYRINGE SC SCH (10:00)
[2018-03-31] MEDS ORDERED: ALPRAZolam 0.5 MG TAB PO PRN (10:00)
[2018-03-31] MEDS ORDERED: ASPirin-EC 81 mg tab PO SCH (10:00)
[2018-03-31] MEDS: AZITHROMYCIN 500MG/ 250ML 250 ML IV SCH (11:11)
[2018-03-31] MEDS: InsuLIN REG 1unit/0.01ml Soln (100units/ml) SC SCH (12:00)
[2018-03-31 12:03] LABS: INR 1.04 (0.9-1.15); Partial Thromboplastin Time 28.2 sec (23.78-33.04); Prothrombin Time 11.1 sec (9.27-12.13)
[2018-03-31] MEDS: ACCU-CHEK COMFORT CURVE STRIP VI SCH (12:07)
[2018-03-31] MEDS ORDERED: PANTOPRAZOLE 40 MG/10 ML VIAL IV ONE (12:15)
[2018-03-31] MEDS ORDERED: CLINDAMYCIN 600MG IV 50 ML IV SCH ×2 (14:00)
[2018-03-31] MEDS ORDERED: LIDOCAINE 1% (LOCAL ANESTH.) PF 5ml SDV ID ONE (16:15)
[2018-03-31] MEDS: METOPROLOL TARTRATE 25 MG TAB PO SCH (16:20)
[2018-03-31] MEDS ORDERED: SODIUM CHLOR 0.9% PF (SALINE LOCK) 10ML VIAL/SYR IV SCH (22:00)
[2018-04-01] MEDS ORDERED: PANTOPRAZOLE 40 MG/10 ML VIAL IV SCH (10:00)
== END 2018-03-31 19:31 | disposition short-term general hospital (02) | DRG 207 ==
LOC: ER 14:44 → TELE 19:32 → ICU WEST 03-22 00:25 → DOU IN ICU 03-30 05:40
PROVIDERS: ADMIT Nurse Practitioner Family; ATTEND Internal Medicine
PROC: 5A1945Z Respiratory Ventilation, 24-96 Consecutive Hours (ICD-10-PCS; 2018-03-22)
PROC: 0BH17EZ Insertion of Endotracheal Airway into Trachea, Via Natural or Artificial Opening (ICD-10-PCS; 2018-03-22)
PROC: 4A023N7 Measurement of Cardiac Sampling and Pressure, Left Heart, Percutaneous Approach (ICD-10-PCS; 2018-03-23)
PROC: B2111ZZ Fluoroscopy of Multiple Coronary Arteries using Low Osmolar Contrast (ICD-10-PCS; 2018-03-23)
PROC: B2151ZZ Fluoroscopy of Left Heart using Low Osmolar Contrast (ICD-10-PCS; 2018-03-23)
PROC: 5A12012 Performance of Cardiac Output, Single, Manual (ICD-10-PCS; principal; 2018-03-24)
PROC: 5A1955Z Respiratory Ventilation, Greater than 96 Consecutive Hours (ICD-10-PCS; 2018-03-24)
PROC: 02HV33Z Insertion of Infusion Device into Superior Vena Cava, Percutaneous Approach (ICD-10-PCS; 2018-03-24)
PROC: 5A09357 Assistance with Respiratory Ventilation, Less than 24 Consecutive Hours, Continuous Positive Airway Pressure (ICD-10-PCS; 2018-03-24)
PROC: 0BH17EZ Insertion of Endotracheal Airway into Trachea, Via Natural or Artificial Opening (ICD-10-PCS; 2018-03-24)
PROC: 0BCB8ZZ Extirpation of Matter from Left Lower Lobe Bronchus, Via Natural or Artificial Opening Endoscopic (ICD-10-PCS; 2018-03-26)
PROC: 5A09357 Assistance with Respiratory Ventilation, Less than 24 Consecutive Hours, Continuous Positive Airway Pressure (ICD-10-PCS; 2018-03-31)
DX: J96.00 Acute respiratory failure, unspecified whether with hypoxia or hypercapnia (principal); J18.9 Pneumonia, unspecified organism; I50.43 Acute on chronic combined systolic (congestive) and diastolic (congestive) heart failure; I63.9 Cerebral infarction, unspecified; E87.2 Acidosis; I13.0 Hypertensive heart and chronic kidney disease with heart failure and stage 1 through stage 4 chronic kidney disease, or unspecified chronic kidney disease; I47.2 Ventricular tachycardia; T17.590A Other foreign object in bronchus causing asphyxiation, initial encounter; N17.9 Acute kidney failure, unspecified; L03.115 Cellulitis of right lower limb; E11.22 Type 2 diabetes mellitus with diabetic chronic kidney disease; E87.5 Hyperkalemia; F12.90 Cannabis use, unspecified, uncomplicated; F17.210 Nicotine dependence, cigarettes, uncomplicated; I25.10 Atherosclerotic heart disease of native coronary artery without angina pectoris; I25.2 Old myocardial infarction; I25.82 Chronic total occlusion of coronary artery; I48.91 Unspecified atrial fibrillation; I70.0 Atherosclerosis of aorta; K76.0 Fatty (change of) liver, not elsewhere classified; N18.3 Chronic kidney disease, stage 3 (moderate); N20.0 Calculus of kidney; N28.1 Cyst of kidney, acquired; T50.2X5A Adverse effect of carbonic-anhydrase inhibitors, benzothiadiazides and other diuretics, initial encounter; Z79.82 Long term (current) use of aspirin; Z79.899 Other long term (current) drug therapy; Z82.49 Family history of ischemic heart disease and other diseases of the circulatory system; Z86.73 Personal history of transient ischemic attack (TIA), and cerebral infarction without residual deficits; Z86.74 Personal history of sudden cardiac arrest; Y92.89 Other specified places as the place of occurrence of the external cause
CPT/HCPCS: 36415; 36569; 36600; 70450; 71045; 71250; 74176; 80048; 80053; 80061; 80307; 81001; 82805; 82962; 83036; 83605; 83690; 83735; 83880; 84132; 84484; 85025; 85379; 85610; 85730; 87040; 87070; 87081; 87205; 92610; 93005; 93306; 94002; 94003; 94640; 94660; 94668; 95819; 96361; 96365; 96375; 99152; A6257; C9113; G0378; J0132; J0153; J0171; J0330; J0610; J0696; J1815; J2001; J2250; J2405; J2543; J2704; J3490; J7060; Q9967